=== PATIENT | female | born 1940 | race African-American/Black ===

== ENCOUNTER 2016-05-07 10:30 | Emergency (ER) | payer MEDICARE ==
[~2016-05-07 10:30] MED LIST: ASPI81TA82 PO; LANTUSP SQ; LORT10TA PO; MEGE40TA3 PO; MOBI7.5T PO; NOVORP2 SQ; PROC90TA PO; TAB-TAB PO
[2016-05-07 10:32] VITALS: BP 189/88; PULSE 107; RESP 12; TEMP 98.2; O2SAT 96
[2016-05-07 10:52] VITALS: BP 193/95; PULSE 116; RESP 16; O2SAT 99
--- NOTE | 2016-05-07 10:55 | PD ---
HPI Chief Complaint: Headache Time Seen by Provider: 10:47 Travel History International Travel<30 days: No Contact w/Intl Traveler<30days: No Traveled to known affect area: No History of Present Illness HPI Patient 75-year-old female presents emergency department for evaluation of headache primarily on the right side. Patient states she's been having headache for a month. She is followed up with an ear nose and throat doctor as well as her primary care physician who I have not given her definitive diagnosis. She's been treating herself at home with Tylenol without any relief. Patient was told it may be her sinuses. She's not had a CAT scan yet for this workup. Patient states she's also been notices some decreased vision over the past few months which she states she has a history of cataracts. Denies any traumatic injury, denies any fevers denies any abdominal pain nausea vomiting diarrhea. Denies any focal weakness. Patient states that she has a history of a brain tumor with resection on the left side of her head. PFSH Past Medical History Arthritis: Yes Anxiety: Yes Depression: Yes Heart Rhythm Problems: No Cancer: No Cardiovascular Problems: Yes High Cholesterol: Yes Chest Pain: Yes Congestive Heart Failure: No Cerebrovascular Accident: No Diabetes: Yes Patient Takes Glucophage: No Endocrine: Yes Genitourinary: No Headaches: Yes Hypertension: Yes Immune Disorder: No Musculoskeletal: Yes Psychiatric: Yes Respiratory: No Seizures: No Ulcer: No Influenza Vaccination: Yes Menopausal: Yes Tubal Ligation: Yes Past Surgical History Neurologic Surgery: Yes (TUMOR REMOVAL FROM LEFT SIDE OF HEAD) Other Surgery: Yes (tubal ligation) Social History Alcohol Use: No Tobacco Use: No Substance Use: No Allergies-Medications (Allergen,Severity, Reaction): Coded Allergies: No Known Allergies (Unverified , 05/07/16) Reported Meds & Prescriptions Reported Meds & Active Scripts Active Reported Nifedipine ER (Nifedipine) 90 Mg Tab 90 Mg PO DAILY Multivitamin Adults (Multiple Vitamins W/ Minerals) 1 Tab 1 Tab PO DAILY Review of Systems Except as stated in HPI: all other systems reviewed are Neg Physical Exam Narrative GENERAL: Well-developed well-nourished in good spirits and apparent distress. SKIN: Warm and dry. HEAD: Atraumatic. Normocephalic. There is no tenderness over the temporal arteries. EYES: Pupils equal and round. No scleral icterus. No injection or drainage. ENT: No nasal bleeding or discharge. Mucous membranes pink and moist. NECK: Trachea midline. No JVD. CARDIOVASCULAR: Irregularly tachycardic, there is a soft 2/6 systolic murmur best heard at the right sternal border. Patient states she has a history of a heart murmur. RESPIRATORY: No accessory muscle use. Clear to auscultation. Breath sounds equal bilaterally. GASTROINTESTINAL: Abdomen soft, non-tender, nondistended. Hepatic and splenic margins not palpable. MUSCULOSKELETAL: No obvious deformities. No clubbing. No cyanosis. No edema. NEUROLOGICAL: Awake and alert and oriented, cranial nerves II-12 are grossly intact and nonfocal, 5 out of 5 strength in all 4 extremities. PSYCHIATRIC: Appropriate mood and affect; insight and judgment normal. Data Data Last Documented VS Vital Signs Date Time Temp Pulse Resp B/P Pulse Ox O2 Delivery O2 Flow Rate FiO2 05/07/16 11:44 106 16 168/81 97 Room Air 05/07/16 10:32 98.2 Orders Complete Blood Count With Diff (05/07/16 10:53) Comprehensive Metabolic Panel (05/07/16 10:53) Westergren Sedimentation Rate (05/07/16 10:53) Ct Brain W/O Iv Contrast(Rout) (05/07/16 10:53) Ecg Monitoring (05/07/16 10:53) Iv Access Insert/Monitor (05/07/16 10:53) Oximetry (05/07/16 10:53) Sodium Chloride 0.9% Flush (Ns Flush) (05/07/16 11:00) Ketorolac Inj (Toradol Inj) (05/07/16 11:00) Prochlorperazine Inj (Compazine Inj) (05/07/16 11:00) Diphenhydramine Inj (Benadryl Inj) (05/07/16 11:00) Labs Laboratory Tests Test 05/07/16 11:10 White Blood Count 4.4 TH/MM3 Red Blood Count 4.55 MIL/MM3 Hemoglobin 13.6 GM/DL Hematocrit 40.7 % Mean Corpuscular Volume 89.5 FL Mean Corpuscular Hemoglobin 29.9 PG Mean Corpuscular Hemoglobin 33.4 % Concent Red Cell Distribution Width 15.5 % Platelet Count 349 TH/MM3 Mean Platelet Volume 9.2 FL Neutrophils (%) (Auto) 61.0 % Lymphocytes (%) (Auto) 26.8 % Monocytes (%) (Auto) 11.1 % Eosinophils (%) (Auto) 0.6 % Basophils (%) (Auto) 0.5 % Neutrophils # (Auto) 2.7 TH/MM3 Lymphocytes # (Auto) 1.2 TH/MM3 Monocytes # (Auto) 0.5 TH/MM3 Eosinophils # (Auto) 0.0 TH/MM3 Basophils # (Auto) 0.0 TH/MM3 CBC Comment AUTO DIFF Differential Comment AUTO DIFF CONFIRMED Platelet Estimate NORMAL Platelet Morphology Comment NORMAL Keratocytes OCC Erythrocyte Sedimentation Rate 6 mm/hr Sodium Level 138 MEQ/L Potassium Level 4.6 MEQ/L Chloride Level 106 MEQ/L Carbon Dioxide Level 25.0 MEQ/L Anion Gap 7 MEQ/L Blood Urea Nitrogen 20 MG/DL Creatinine 1.32 MG/DL Estimat Glomerular Filtration 47 ML/MIN Rate Random Glucose 153 MG/DL Calcium Level 10.1 MG/DL Total Bilirubin 0.6 MG/DL Aspartate Amino Transf 46 U/L (AST/SGOT) Alanine Aminotransferase 25 U/L (ALT/SGPT) Alkaline Phosphatase 77 U/L Total Protein 8.3 GM/DL Albumin 4.5 GM/DL [facility] Medical Decision Making Medical Screen Exam Complete: Yes Emergency Medical Condition: Yes Differential Diagnosis Migraine, tension or cluster. Acute intracranial abnormality unlikely. Temporal arteritis unlikely as well. Narrative Course ESR negative. Labs reassuring. CT head negative. Benadryl, compazine and toradol given and patient headache completely relieved. DIscussed return to ED criteria and need for follow up with PCP. Diagnosis Primary Impression: Headache Qualified Code: R51 - Nonintractable headache, unspecified chronicity pattern , unspecified headache type Disposition: 01 DISCHARGE HOME Condition: Stable Kai Cardoso MD May 07, 2016 10:55
[2016-05-07] MEDS ORDERED: MULT1TAB84 PO (10:59)
[2016-05-07] MEDS ORDERED: NIFE90TA2 PO (10:59)
[2016-05-07] MEDS ORDERED: KETOROLAC TROMETHAMINE 30 MG/ML (IVP) VIAL IVP ONE (11:00)
[2016-05-07] MEDS ORDERED: PROCHLORPERAZINE INJ 10 MG/2 ML VIAL IVP ONE (11:00)
[2016-05-07] MEDS ORDERED: diphenhydrAMINE HCL 50 MG/ML VIAL IVP ONE (11:00)
[2016-05-07] MEDS ORDERED: SODIUM CHLORIDE 0.9% FLUSH 5 ML FLUSH IVF PRN (11:00)
[2016-05-07 11:27] LABS: AUTOMATED NEUTROPHIL # 2.7 TH/MM3 (1.8-7.7); BASOPHIL % 0.5 % (0.0-2.0); EOSINOPHIL % 0.6 % (0.0-4.0); HEMATOCRIT 40.7 % (35.0-46.0); LYMPH % 26.8 % (9.0-44.0); LYMPHOCYTE # 1.2 TH/MM3 (1.0-4.8); MEAN CELL VOLUME 89.5 FL (80.0-100.0); MEAN CORPUSCULAR HEMOGLOBIN 29.9 PG (27.0-34.0); MEAN CORPUSCULAR HGB CONC 33.4 % (32.0-36.0); MONO % 11.1 % (0.0-8.0); PLATELET COUNT 349 TH/MM3 (150-450); RED BLOOD COUNT 4.55 MIL/MM3 (4.00-5.30); RED CELL DISTRIBUTION WIDTH 15.5 % (11.6-17.2); WHITE BLOOD COUNT 4.4 TH/MM3 (4.0-11.0)
[2016-05-07 11:28] LABS: HEMO FLAGS AUTO DIFF
[2016-05-07 11:44] VITALS: BP 168/81; PULSE 106; RESP 16; O2SAT 97
[2016-05-07 11:47] LABS: ALKALINE PHOSPHATASE 77 U/L (45-117); TOTAL BILIRUBIN ADULT 0.6 MG/DL (0.2-1.0)
[2016-05-07 11:52] LABS: ALT (GPT) 25 U/L (10-53); ANION GAP 7 MEQ/L (5-15); AST (GOT) 46 U/L (15-37); BLOOD UREA NITROGEN 20 MG/DL (7-18); CHLORIDE 106 MEQ/L (98-107); GLOMERULAR FILTRATION RATE 47 ML/MIN (>89); POTASSIUM 4.6 MEQ/L (3.5-5.1); SODIUM (NA) 138 MEQ/L (136-145)
[2016-05-07 11:59] LABS: KERATOCYTES OCC (NORMAL); PLATELET ESTIMATE SMEAR NORMAL (NORMAL); PLATELET MORPHOLOGY NORMAL (NORMAL); SCAN/DIFF AUTO DIFF CONFIRMED
--- NOTE | 2016-05-07 13:18 | RADRPT ---
EXAM DATE/TIME: 05/07/2016 12:49 [facility] COMPARISON: No previous studies available for comparison. INDICATIONS : Cephalgia for 5 months. RADIATION DOSE: 32.69 CTDIvol (mGy) MEDICAL HISTORY : Cardiovascular disease. Hypertension. Diabetes mellitus type 2. SURGICAL HISTORY : Craniotomy. ENCOUNTER: Initial ACUITY: 4 - 6 months PAIN SCALE: 7/10 LOCATION: Cranial TECHNIQUE: Multiple contiguous axial images were obtained of the head. Using automated exposure control and adjustment of the mA and/or kV according to patient size, radiation dose was kept as low as reasonably achievable to obtain optimal diagnostic quality images. FINDINGS: Noncontrast head CT demonstrates the patient has had a left frontal craniotomy previously with some r esidual encephalomalacia in the left frontal lobe. No residual mass is identified. There is no evid ence of any hemorrhage. There is no mass or mass effect. No subarachnoid hemorrhage or hematoma is identified. Globes are unremarkable. CONCLUSION: Left frontal encephalomalacia status post craniotomy. No evidence of intracranial mass or hemorrhage . Tod Curtis MD on May 07, 2016 at 13:10 Board Certified Radiologist. This report was verified electronically.
== END 2016-05-07 14:04 | disposition home or self-care (01) ==
LOC: NEPE 10:30
DX: R51 Headache (principal); I10 Essential (primary) hypertension
CPT/HCPCS: 70450; 80053; 85025; 85652; 96374; 96375; 99284; J0780; J1200; J1885

== ENCOUNTER 2017-05-11 10:41 | Emergency (ER) | payer MEDICARE ==
[~2017-05-11] VITALS: Ht 162.6 cm; Wt 56.0 kg
[~2017-05-11 10:41] MED LIST changes: -ASPI81TA82 PO; -LANTUSP SQ; -LORT10TA PO; -MEGE40TA3 PO; -MOBI7.5T PO; +MULT1TAB84 PO; +NIFE90TA2 PO; -NOVORP2 SQ; -PROC90TA PO; -TAB-TAB PO
[2017-05-11] MEDS ORDERED: IOHEXOL 350 MG/ML 10 ML VIAL (for RAD DIAG) IVCONTRAST ONE (10:42)
[2017-05-11 10:43] VITALS: BP 131/66; PULSE 97; RESP 14; TEMP 98.9; O2SAT 99
[2017-05-11] MEDS ORDERED: LOSA25TA PO (10:58)
[2017-05-11] MEDS ORDERED: METO25TA3 PO (10:58)
[2017-05-11] MEDS ORDERED: INSU1.2I SQ (10:58)
[2017-05-11] MEDS ORDERED: ATOR10TA15 PO (10:58)
[2017-05-11 11:00] VITALS: BP 129/68; PULSE 90; RESP 19; O2SAT 98
--- NOTE | 2017-05-11 11:12 | PD ---
HPI Chief Complaint: Abdominal Pain Time Seen by Provider: 11:00 Travel History International Travel<30 days: No Contact w/Intl Traveler<30days: No Traveled to known affect area: No History of Present Illness HPI This is a 71-year-old female who presents for evaluation of abdominal pain. Symptoms started 2 days ago. She reports a mild crampy abdominal pain primarily in the lower aspects of her abdomen which comes and goes, seems to be worse in the morning and then lessens throughout the day. Symptoms persisted today and this is what prompted evaluation. She reports she has had hard and pebbly stools on a daily basis over the past week as well as some increased urinary frequency. She denies fevers or chills, flank pain, nausea or vomiting , diarrhea, dysuria, chest pain or shortness of breath, dietary changes. She reports a history of tubal ligation, denies any other abdominal surgeries. No other complaints at this time. PFSH Past Medical History Hx Anticoagulant Therapy: Yes Arthritis: Yes Anxiety: Yes Depression: Yes Heart Rhythm Problems: No Cancer: No Cardiovascular Problems: Yes High Cholesterol: Yes Chest Pain: Yes Congestive Heart Failure: No Cerebrovascular Accident: No Diabetes: Yes Patient Takes Glucophage: No Diminished Hearing: No Endocrine: Yes Genitourinary: No Headaches: Yes Hypertension: Yes Immune Disorder: No Musculoskeletal: Yes Neurologic: Yes Psychiatric: Yes Respiratory: No Seizures: No Ulcer: No ?: Not Menopausal: Yes Tubal Ligation: Yes Past Surgical History Gynecologic Surgery: Yes Neurologic Surgery: Yes (TUMOR REMOVAL FROM LEFT SIDE OF HEAD) Other Surgery: Yes (tubal ligation) Social History Alcohol Use: No Tobacco Use: No Substance Use: No Allergies-Medications (Allergen,Severity, Reaction): Coded Allergies: No Known Allergies (Unverified Adverse Reaction, Unknown, 05/11/17) Reported Meds & Prescriptions Reported Meds & Active Scripts Active Flagyl (Metronidazole) 500 Mg Tab 500 Mg PO TID 10 Days Cipro (Ciprofloxacin HCl) 500 Mg Tab 500 Mg PO BID 10 Days Reported Iris Gutierrez Pen Inj (Insulin Glargine) 300 Unit/Ml Pen 20 Units SQ HS Atorvastatin (Atorvastatin Calcium) 10 Mg Tab 10 Mg PO HS Losartan (Losartan Potassium) 25 Mg Tab 25 Mg PO DAILY Metoprolol Tartrate 25 Mg Tab 25 Mg PO DAILY Nifedipine ER (Nifedipine) 90 Mg Tab 90 Mg PO DAILY Review of Systems Except as stated in HPI: all other systems reviewed are Neg Physical Exam Narrative GENERAL: Well-developed well-nourished female in no acute distress, smiling, responding to questions and commands appropriately. SKIN: Warm and dry. HEAD: Atraumatic. Normocephalic. EYES: Pupils equal and round. No scleral icterus. No injection or drainage. ENT: No nasal bleeding or discharge. Mucous membranes pink and moist. NECK: Trachea midline. No JVD. CARDIOVASCULAR: Regular rate and rhythm. No murmur appreciated. RESPIRATORY: No accessory muscle use. Clear to auscultation. Breath sounds equal bilaterally. GASTROINTESTINAL: Abdomen soft, mild tenderness to palpation in the left and right lower quadrants without guarding. Normoactive bowel sounds in all 4 quadrants. Negative Dunham's. No CVA tenderness. MUSCULOSKELETAL: No obvious deformities. No clubbing. No cyanosis. No edema. NEUROLOGICAL: Awake and alert. No obvious cranial nerve deficits. Motor grossly within normal limits. Normal speech. PSYCHIATRIC: Appropriate mood and affect; insight and judgment normal. Data Data Last Documented VS Vital Signs Date Time Temp Pulse Resp B/P (MAP) Pulse Ox O2 Delivery O2 Flow Rate FiO2 05/11/17 11:15 97 Room Air 05/11/17 10:43 98.9 97 14 Orders Orders Complete Blood Count With Diff (05/11/17 11:08) Comprehensive Metabolic Panel (05/11/17 11:08) Lipase (05/11/17 11:08) Prothrombin Time / Inr (Pt) (05/11/17 11:08) Act Partial Throm Time (Ptt) (05/11/17 11:08) Urinalysis - C+S If Indicated (05/11/17 11:08) Ct Abd/Pel W Iv Contrast(Rout) (05/11/17 11:08) Iv Access Insert/Monitor (05/11/17 11:08) Ecg Monitoring (05/11/17 11:08) Oximetry (05/11/17 11:08) Sodium Chloride 0.9% Flush (Ns Flush) (05/11/17 11:15) Electrocardiogram (05/11/17 11:08) Iohexol 350 Inj (Omnipaque 350 Inj) (05/11/17 10:42) Ciprofloxacin 400 Mg Premix (Cipro 400 M (05/11/17 13:00) Metronidazole 500 Mg Inj (Flagyl 500 Mg (05/11/17 13:00) Ed Discharge Order (05/11/17 13:23) Labs Laboratory Tests Test 05/11/17 11:20 White Blood Count 6.7 TH/MM3 Red Blood Count 4.47 MIL/MM3 Hemoglobin 13.6 GM/DL Hematocrit 40.0 % Mean Corpuscular Volume 89.4 FL Mean Corpuscular Hemoglobin 30.5 PG Mean Corpuscular Hemoglobin Concent 34.1 % Red Cell Distribution Width 14.0 % Platelet Count 266 TH/MM3 Mean Platelet Volume 8.4 FL Neutrophils (%) (Auto) 78.1 % Lymphocytes (%) (Auto) 10.6 % Monocytes (%) (Auto) 10.6 % Eosinophils (%) (Auto) 0.2 % Basophils (%) (Auto) 0.5 % Neutrophils # (Auto) 5.3 TH/MM3 Lymphocytes # (Auto) 0.7 TH/MM3 Monocytes # (Auto) 0.7 TH/MM3 Eosinophils # (Auto) 0.0 TH/MM3 Basophils # (Auto) 0.0 TH/MM3 CBC Comment DIFF FINAL Differential Comment Prothrombin Time 10.3 SEC Prothromb Time International Ratio 1.0 RATIO Activated Partial Thromboplast Time 27.1 SEC Blood Urea Nitrogen 25 MG/DL Creatinine 1.36 MG/DL Random Glucose 192 MG/DL Total Protein 7.8 GM/DL Albumin 3.9 GM/DL Calcium Level 10.3 MG/DL Alkaline Phosphatase 64 U/L Aspartate Amino Transf (AST/SGOT) 16 U/L Alanine Aminotransferase (ALT/SGPT) 13 U/L Total Bilirubin 0.8 MG/DL Sodium Level 137 MEQ/L Potassium Level 3.6 MEQ/L Chloride Level 104 MEQ/L Carbon Dioxide Level 23.3 MEQ/L Anion Gap 10 MEQ/L Estimat Glomerular Filtration Rate 46 ML/MIN Lipase 76 U/L [facility]DM Medical Decision Making Medical Screen Exam Complete: Yes Emergency Medical Condition: Yes Medical Record Reviewed: Yes Differential Diagnosis Diverticulitis, constipation, urinary tract infection, malignancy, obstruction Narrative Course 76-year-old female with 2 days of crampy lower abdominal pain which is worse in the mornings. She appears well. On examination she has mild tenderness to palpation in the lower quadrants. Plan is for basic lab work, urinalysis, CT abdomen and pelvis. CBC reveals a WBC count of 6.7 with 78.1% neutrophils. CMP reveals a BUN of 25 , creatinine 1.36, random glucose 192, calcium 10.3. CT of the abdomen and pelvis reveals descending diverticulitis. She appears well. She is afebrile, not tachycardic, no leukocytosis, tolerating oral food and hydration without difficulty, she will be treated as an outpatient. She will be given IV Cipro and Flagyl here and discharged with prescriptions for the same. I discussed the diagnosis and treatment plan with the patient and family members at bedside in great detail. Recommended follow-up with primary care physician this week for recheck and discuss signs and symptoms that would warrant returning to the emergency room. She is stable for discharge. Diagnosis Primary Impression: Diverticulitis Additional Instructions: Medication as prescribed. Stay well-hydrated and well-nourished. Follow-up with primary care physician in 3-4 days for recheck. Return for any acutely new or worsening symptoms such as fevers, chills, intractable nausea and vomiting. Med/Other Pt SpecificInfo: Prescription(s) given Scripts Metronidazole (Flagyl) 500 Mg Tab 500 MG PO TID for Infection for 10 Days, TAB 0 Refills Prov: Renee Wilkinson MD 05/11/17 Ciprofloxacin (Cipro) 500 Mg Tab 500 MG PO BID for Infection for 10 Days, #20 TAB 0 Refills Prov: Renee Wilkinson MD 05/11/17 Disposition: 01 DISCHARGE HOME Condition: Stable Ambrose Bishop May 11, 2017 11:12
[2017-05-11 11:15] VITALS: O2SAT 97
[2017-05-11] MEDS ORDERED: SODIUM CHLORIDE 0.9% FLUSH 10 ML FLUSH IV FLUSH PRN (11:15)
[2017-05-11 11:34] LABS: AUTOMATED NEUTROPHIL # 5.3 TH/MM3 (1.8-7.7); BASOPHIL % 0.5 % (0.0-2.0); EOSINOPHIL % 0.2 % (0.0-4.0); HEMOGLOBIN 13.6 GM/DL (11.6-15.3); LYMPH % 10.6 % (9.0-44.0); LYMPHOCYTE # 0.7 TH/MM3 (1.0-4.8); MEAN CELL VOLUME 89.4 FL (80.0-100.0); MEAN CORPUSCULAR HEMOGLOBIN 30.5 PG (27.0-34.0); MEAN CORPUSCULAR HGB CONC 34.1 % (32.0-36.0); MEAN PLATELET VOLUME 8.4 FL (7.0-11.0); MONO % 10.6 % (0.0-8.0); MONOCYTE # 0.7 TH/MM3 (0-0.9); NEUT % 78.1 % (16.0-70.0); PLATELET COUNT 266 TH/MM3 (150-450); RED BLOOD COUNT 4.47 MIL/MM3 (4.00-5.30); WHITE BLOOD COUNT 6.7 TH/MM3 (4.0-11.0)
[2017-05-11 11:42] LABS: PROTHROMBIN TIME - PATIENT 10.3 SEC (9.8-11.6)
[2017-05-11 11:46] LABS: ALBUMIN 3.9 GM/DL (3.4-5.0); AST (GOT) 16 U/L (15-37); BICARBONATE 23.3 MEQ/L (21.0-32.0); BLOOD UREA NITROGEN 25 MG/DL (7-18); CALCIUM 10.3 MG/DL (8.5-10.1); CHLORIDE 104 MEQ/L (98-107); CREATININE 1.36 MG/DL (0.50-1.00); GLOMERULAR FILTRATION RATE 46 ML/MIN (>89); GLUCOSE,RANDOM 192 MG/DL (74-106); SODIUM (NA) 137 MEQ/L (136-145)
[2017-05-11 11:47] LABS: ALT (GPT) 13 U/L (10-53)
[2017-05-11 11:49] LABS: ALKALINE PHOSPHATASE 64 U/L (45-117); TOTAL BILIRUBIN ADULT 0.8 MG/DL (0.2-1.0); TOTAL PROTEIN 7.8 GM/DL (6.4-8.2)
--- NOTE | 2017-05-11 12:47 | RADRPT ---
EXAM DATE/TIME: 05/11/2017 12:34 [facility] COMPARISON: No previous studies available for comparison. INDICATIONS : Diffuse abdomen pain for two days. IV CONTRAST: 64 cc Omnipaque 350 (iohexol) IV ORAL CONTRAST: No oral contrast ingested. RADIATION DOSE: 4.75 CTDIvol (mGy) MEDICAL HISTORY : Hypertension. diabetes SURGICAL HISTORY : Tubal ligation. ENCOUNTER: Initial ACUITY: 2 days PAIN SCALE: 7/10 LOCATION: Bilateral abdomen TECHNIQUE: Volumetric scanning of the abdomen and pelvis was performed. Using automated exposure control and ad justment of the mA and/or kV according to patient size, radiation dose was kept as low as reasonably achievable to obtain optimal diagnostic quality images. DICOM format image data is available electro nically for review and comparison. FINDINGS: LOWER LUNGS: The visualized lower lungs are clear. LIVER: Homogeneous density without lesion. There is no dilation of the biliary tree. No calcified gallston es. SPLEEN: Normal size without lesion. PANCREAS: Within normal limits. KIDNEYS: Normal in size and shape. There is no mass, stone or hydronephrosis. ADRENAL GLANDS: Within normal limits. VASCULAR: There is no aortic aneurysm. BOWEL/MESENTERY: Wall thickening and inflammatory changes with diverticulitis involving the descending colon. No perfo ration or abscess.. There is no free intraperitoneal air or fluid. ABDOMINAL WALL: Within normal limits. RETROPERITONEUM: There is no lymphadenopathy. BLADDER: No wall thickening or mass. REPRODUCTIVE: Calcified leiomyoma. INGUINAL: There is no lymphadenopathy or hernia. MUSCULOSKELETAL: Within normal limits for patient age. CONCLUSION: 1. Diverticulitis of the descending colon. 2. Calcified leiomyoma. Darryl Wilson MD on May 11, 2017 at 12:43 Board Certified Radiologist. This report was verified electronically.
[2017-05-11] MEDS ORDERED: metroNIDAZOLE 500 MG INJ 100 ML IV ONE (13:00)
[2017-05-11] MEDS ORDERED: CIPROFLOXACIN 400 MG PREMIX 200 ML IV ONE (13:00)
[2017-05-11] MEDS ORDERED: CIPR-9 PO (13:01)
[2017-05-11] MEDS ORDERED: METR-1 PO (13:01)
[2017-05-11 14:01] LABS: AMORPHOUS SEDIMENT, URINE FEW; BILIRUBIN, URINE NEG (NEG); BLOOD, URINE NEG (NEG); GLUCOSE,URINE 70 mg/dL (NEG); KETONE, URINE 10 mg/dL (NEG); MUCUS URINE FEW /lpf (OCC); NITRITE,URINE NEG (NEG); PH, URINE 5.5 (5.0-8.5); SQUAMOUS EPITHELIAL CELL URINE 1 /hpf (0-5); TRANSITIONAL EPI CELLS, URINE <1 /hpf; URINE COLOR YELLOW (YELLW/STRAW); URINE LEUKOCYTE ESTERASE NEG (NEG)
[2017-05-11 15:00] VITALS: BP 160/78; PULSE 86; RESP 19; O2SAT 98
[2017-05-11 16:40] VITALS: BP 156/74
--- NOTE | 2017-05-12 23:08 | EKG ---
Date Performed: 05/11/2017 Time Performed: 11:23:27 PTAGE: 76 years EKG: Sinus rhythm NONSPECIFIC ST & T-WAVE ABNORMALITY BORDERLINE ECG PREVIOUS TRACING : 07/19/2013 21.05 DOCTOR: Romelia Goetz Interpretating Date/Time 05/12/2017 23:06:00
== END 2017-05-11 16:40 | disposition home or self-care (01) ==
LOC: NEPC 10:41
DX: K57.92 Diverticulitis of intestine, part unspecified, without perforation or abscess without bleeding (principal); M19.90 Unspecified osteoarthritis, unspecified site; F41.9 Anxiety disorder, unspecified; F32.9 Major depressive disorder, single episode, unspecified; E78.00 Pure hypercholesterolemia, unspecified; E11.9 Type 2 diabetes mellitus without complications; I10 Essential (primary) hypertension; R94.31 Abnormal electrocardiogram [ECG] [EKG]; Z79.899 Other long term (current) drug therapy
CPT/HCPCS: 74177; 80053; 81001; 83690; 85025; 85610; 85730; 93005; 96360; 99285; J0744; Q9967